=== PATIENT | male | born 1945 | race African-American/Black ===

== ENCOUNTER 2023-10-24 19:38 | Emergency (ER) | payer OTHER ==
[~2023-10-24] VITALS: Ht 175.3 cm; Wt 90.7 kg
[2023-10-24 23:20] VITALS: BP 130/80; TEMP 98; O2SAT 100
== END 2023-10-24 23:22 ==
LOC: EDBD 19:41 → ER 19:41
DX: F29 Unspecified psychosis not due to a substance or known physiological condition (principal); R06.02 Shortness of breath
CPT/HCPCS: 93005; A4606; A4663